=== PATIENT | female | born 1970 ===

== ENCOUNTER → 2022-05-16 15:02 | Outpatient (POV) | payer SELFPAY | PROVIDERS: Visit Provider Internal Medicine Nephrology | DX: Z00.00 Encounter for general adult medical examination without abnormal findings (principal) ==

== ENCOUNTER → 2022-07-18 13:38 | Outpatient (POV) | payer SELFPAY | PROVIDERS: Visit Provider Internal Medicine Nephrology | DX: Z00.00 Encounter for general adult medical examination without abnormal findings (principal) ==